=== PATIENT | female | born 1980 | race Caucasian/White ===

== ENCOUNTER 2017-01-15 18:11 | Emergency (ER) | payer BC ==
[2017-01-15 18:33] VITALS: BP 135/104
[2017-01-15 18:52] LABS: Basophils % (Auto) 0.8 % (0.0-1.8); Eosinophils % (Auto) 3.2 % (0.0-4.3); Hematocrit 38.6 % (30.3-42.9); Hemoglobin 12.7 gm/dl (10.1-14.3); Mean Corpuscular HGB Conc 33 % (30-34); Mean Corpuscular Hemoglobin 28 pg (28-32); Mean Corpuscular Volume 86 fl (79-97); Red Blood Count 4.49 M/mm3 (3.65-5.03); Red Cell Distribution Width 16.2 % (13.2-15.2); White Blood Count 7.1 K/mm3 (4.5-11.0)
[2017-01-15 18:53] LABS: Platelet Count 217 K/mm3 (140-440)
[2017-01-15 19:14] LABS: Alanine Aminotransferase 7 units/L (7-56); Albumin 4.4 g/dL (3.9-5); Albumin/Globulin Ratio 1.4 %; Alkaline Phosphatase 76 units/L (35-129); Anion Gap 20 mmol/L; Blood Urea Nitrogen 8 mg/dL (7-17); Calcium 9.4 mg/dL (8.4-10.2); Carbon Dioxide 25 mmol/L (22-30); Chloride 100.3 mmol/L (98-107); Glucose 104 mg/dL (65-100); Lipase 62 units/L (13-60); Potassium 3.9 mmol/L (3.6-5.0); Sodium 141 mmol/L (137-145); Total Protein 7.6 g/dL (6.3-8.2)
[2017-01-15 19:53] LABS: INR 1.04 (0.87-1.13)
[2017-01-15 19:54] LABS: Partial Thromboplastin Time 26.7 Sec. (24.2-36.6)
--- NOTE | 2017-01-15 21:25 | Ultrasound Report ---
FINAL REPORT PROCEDURE: US ABDOMEN LIMITED TECHNIQUE: Real-time sonography in multiple planes of the gallbladder fossa and CBD with imaging of the adjacent liver, pancreas, and right kidney was performed with image documentation. CPT 34645 HISTORY: RUQ pain and N/V COMPARISON: No prior studies are available for comparison. FINDINGS: Liver: Normal size and echotexture with no evidence of cystic or solid mass lesion. Gallbladder: Fluid filled. No gallstones, wall thickening, pericholecystic fluid, or sonographic Grande's sign . Intrahepatic bile ducts: Normal . Extrahepatic bile ducts: Normal. Common duct measures 0.4 cm. Pancreas: Normal as visualized . Right kidney: Normal echotexture. No focal renal mass, calculus, or hydronephrosis. 10.5 cm in length. Other: No free fluid. IMPRESSION: Normal Examination. No gallstones.
== END 2017-01-16 00:13 | disposition left against medical advice (07) ==
LOC: ED 18:11
DX: R10.9 Unspecified abdominal pain (principal); Z53.21 Procedure and treatment not carried out due to patient leaving prior to being seen by health care provider
CPT/HCPCS: 36415; 76705; 80053; 83690; 85025; 85610; 85730